=== PATIENT | male | born 1970 | race Caucasian/White ===

== ENCOUNTER → 2021-04-08 00:32 | Outpatient (CLI) | payer OTHER, SELFPAY ==
[2021-04-08 21:00] LABS: SARS-CoV-2 RNA PCR Negative
== END ==
PROVIDERS: PCP Family Medicine; Visit Provider Family Medicine
DX: Z20.828 Contact with and (suspected) exposure to other viral communicable diseases (principal)
CPT/HCPCS: C9803; U0003; U0005

== ENCOUNTER 2024-08-21 00:21 | Day surgery (SDC) | payer OTHER, SELFPAY ==
[2024-08-12 16:08] VITALS: BMI 29.8
[2024-08-21 07:21] VITALS: BP 119/72; PULSE 72; RESP 17; TEMP 36.1; O2SAT 100; BMI 29.7
[2024-08-21] MEDS: LACTATED RINGERS 1,000 ML 150 ML IV CONT (07:29)
--- NOTE | 2024-08-21 07:33 | WPDANESEPPF ---
Anes - Initial Pre Proc Eval Procedure: Operation Date: 08/21/24 08:30 Proposed Procedures p Screening Colonoscopy - Steffen Travis MD Date/Time: 08/21/24 07:33 Surgeon: Steffen Travis MD Pre Op Diagnosis: screening malignant neoplasm colon Patient Data Age: 53 Gender: M Height: 1.83 m Weight: 99.7 kg Last Vital Signs Temp 36.1 C L 08/21/24 07:21 Pulse 72 08/21/24 07:21 Resp 17 08/21/24 07:21 BP 119/72 08/21/24 07:21 Pulse Ox 100 08/21/24 07:21 O2 Del Method Room Air 08/21/24 07:21 Allergies Allergy/AdvReac Type Severity Reaction Status Date / Time No Known Allergies Allergy Verified 08/21/24 07:20 Home Medications ?Medication ?Instructions ?Recorded ?Confirmed ?Type pantoprazole 40 mg tablet,delayed 40 mg PO QAM #90 tabs 07/12/23 08/12/24 Rx release pantoprazole 40 mg tablet,delayed 40 mg PO QAM #90 tabs 03/06/24 08/12/24 Rx release fenofibrate nanocrystallized 145 145 mg PO DAILY #90 tabs 07/24/24 08/12/24 Rx mg tablet Patient hx anesthesia problems: none Family hx anesthesia problems: none Results Review: All pre-operative results and documents have been reviewed as part of the pre-operative evaluation. [facility] Past Medical History Medical History Anxiety Tinea cruris Acid reflux Hyperlipemia Surgical History Surgical History H/O vasectomy [place] teeth removed Hx of tonsillectomy Family History Family History Father Heart disease Social History Social History Smoking status: Never smoker Alcohol intake: current Drinks per week: 5 Substance use: never Do You Feel Safe in your Home?: Yes Lack of Transportation: No Lack of Food: Never True Current Housing: I Have Housing Concerned About Future Housing: No Difficulty Paying Gas/Electric Bills: No Difficulty Paying for Meds: No Difficulty w/ Childcare or Family Care: No Living arrangements: with family Occupation/Education: occupation Gender identity (if verbalized by the patient): Male Sexual Orientation (if Verbalized by the Patient): Straight or Heterosexual Spiritual care concerns: No Anes - Eval Final PreProcedure Day of Procedure 08/21/24 07:33 Patient weight: overweight Heart: regular rate and rhythm Lungs: clear to auscultation Airway: Mallampati scale class II Neurological: alert and oriented Last oral intake: >/= 8 hours ASA classification: II Emergent: no Anesthetic plan: proceed Anesthesia type and monitoring: general GIVS and standard monitoring Results Review: All pre-operative results and documents have been reviewed as part of the pre-operative evaluation. Informed Consent: The patient's anesthetic plan and its attendant risks and benefits were discussed with the patient/family/POA. Questions were solicited and answers provided to the satisfaction of the patient/family/POA.
--- NOTE | 2024-08-21 08:03 | P.HP_ITS ---
History of Present Illness History of Present Illness Consent: Risks, benefits, and alternatives have been discussed and questions answered. Patient agrees to proceed with procedure. Chief complaint: screening malignant neoplasm colon Narrative: Sriram Zapien Jr. is a 53 year old male here for first screening colonoscopy Review of Systems Review of Systems: All systems reviewed & are unremarkable except as noted in HPI and below PMFSH Past Medical History Medical History (Updated 08/21/24 @ 08:04 by Steffen Travis MD) Colon cancer screening Anxiety Tinea cruris Acid reflux Hyperlipemia Surgical History Surgical History H/O vasectomy [place] teeth removed Hx of tonsillectomy Family History Family History Father Heart disease Social History Social History Smoking status: Never smoker Alcohol intake: current Drinks per week: 5 Substance use: never Do You Feel Safe in your Home?: Yes Lack of Transportation: No Lack of Food: Never True Current Housing: I Have Housing Concerned About Future Housing: No Difficulty Paying Gas/Electric Bills: No Difficulty Paying for Meds: No Difficulty w/ Childcare or Family Care: No Living arrangements: with family Occupation/Education: occupation Gender identity (if verbalized by the patient): Male Sexual Orientation (if Verbalized by the Patient): Straight or Heterosexual Spiritual care concerns: No Meds Home Medications and Allergies Home Medications ?Medication ?Instructions ?Recorded ?Confirmed ?Type pantoprazole 40 mg tablet,delayed 40 mg PO QAM #90 tabs 07/12/23 08/12/24 Rx release pantoprazole 40 mg tablet,delayed 40 mg PO QAM #90 tabs 03/06/24 08/12/24 Rx release fenofibrate nanocrystallized 145 145 mg PO DAILY #90 tabs 07/24/24 08/12/24 Rx mg tablet Allergies Allergy/AdvReac Type Severity Reaction Status Date / Time No Known Allergies Allergy Verified 08/21/24 07:20 Vital Signs Vital Signs - 24 hr 08/21/24 07:21 Temperature 96.9 F L Pulse Rate 72 Respiratory Rate 17 Blood Pressure 119/72 Pulse Oximetry 100 Oxygen Delivery Room Air Exam Const: General: comfortable and no acute distress HENMT: Face/Nose/Sinus: Normal nares present Eyes: General: appearance normal, both eyes and all related structures Neck: Neck: no JVD Resp: Auscultation: clear to auscultation bilaterally Cardio: Rate: regular rate Rhythm: regular rhythm GI: Inspection: non-distended GI Palp: Yes Soft to palpation Skin: General skin exam: normal color Neuro: General: gait normal Speech: normal speech Extrem: General: normal to inspection Psych: Mental Status: mental status grossly normal Assessment and Plan Assessment and plan (1) Colon cancer screening: Code(s): Z12.11 - Encounter for screening for malignant neoplasm of colon Status: Acute Assessment and Plan: colonoscopy
[2024-08-21 08:15] VITALS: BP 125/102; PULSE 65; RESP 19; O2SAT 97
[2024-08-21 08:25] VITALS: BP 119/75; PULSE 66; RESP 22; O2SAT 98
[2024-08-21 08:35] VITALS: BP 118/65; PULSE 61; RESP 20; O2SAT 99
--- OUTSIDE RECORDS SUMMARY | 2024-08-27 04:48 | XMS_ITS | Clinical Summary ---
Author Organization [facility] Address [address] [place] [address] Care Team Providers Care Rock Worker Name Role Phone Unavailable Primary Care Provider Unavailabl e Source Comments [facility],non-owned Affiliates and Associated Physician Practices is amultiple site organization consisting of ambulatory clinics and hospital sitesin [place], [place], [place] and [place]. This disclosure is being madepursuant to the Care Everywhere program and may not contain all information available regarding this patient. Last updated 18.[facility] [employer] Social History Tobacco Use Types Packs/Day Years Used Date Smoking Tobacco: Never Assessed Sex and Gender Information Value Date Recorded Sex Assigned at Not on file Gender Identity Not on file Sexual Orientation Not on file Plan of Treatment Health Maintenance Due Date Last Done Comments COLOGUARD (AGES 45-75) - COL ON CA SCREENING 1972 COLON MONITORING 1972 COLONOSCOPY - COLON CA SCREENING 1972 CT COLONOGRAPHY - COLON CA SCREENING 1972 Colorectal Cancer Screening 1972 FIT - COLON CA SCREENING 1972 FLEX SIG - COLON CA SCREENING 1972 LIPID TESTING 1972 HIV SCREENING 1987 HEPATITIS C SCREENING 09/08/1990 DTAP/TDAP/TD VACCINES (1 - Tdap) 1991 HEPATITIS B VACCINE (1 of 3 - 19+ 3-dose series) 1991 PNEUMOCOCCAL VACCINE 50+ (1 of 1 - PCV) 2022 ZOSTER VACCINE (1 of 2) 2022 COVID-19 VACCINE (1 - 2023-2 5 season) 2024 INFLUENZA VACCINE (#1) 2024 DEPRESSION SCREENING 08/05/2024 HIB VACCINE Aged Out No longer eligi ble based on patient's age to complete this topic HPV VACCINE Aged Out No longer eligi ble based on patient's age to complete this topic MENINGOCOCCAL (Group B) VACCINE Aged Out No longer eligible based on patient's age to complete this topic MENINGOCOCCAL VACCINE Aged Out No ramsey atul eligible based on patient's age to complete this topic PNEUMOCOCCAL VACCINE Aged Out No long er eligible based on patient's age to complete this topic
--- OUTSIDE RECORDS SUMMARY | 2024-08-27 04:48 | XMS_ITS | Encounter Summary ---
Author Organization [facility] Address [address] [place] [address] Care Team Providers Care Gold Wheel Blocker And Polisher Name Role Phone Unavailable Primary Care Provider Unavailabl e Encounter Details Date Type Department Care Team (Late st Contact Info) Description 08/01/2020 Lab Requisition [facility] [address] [place] [address] Crystal Hernandez MD [address] [facility] [address] [place] [address] Social History Tobacco Use Types Packs/Day Years Used Date Smoking Tobacco: Never Assessed Sex and Gender Information Value Date Recorded Sex Assigned at Not on file Gender Identity Not on file Sexual Orientation Not on file documented as of this encounter Plan of Treatment Not on file documented as of this encounter Procedures Procedure Name Priority Date/Time Associated Diagnosis Comments DERMATOPATHOLOGY Routine 08/01/2020 3:33 AM COMMERCIAL ENGINEER documented in this encounter Results * DERMATOPATHOLOGY (08/01/2020 3:33 AM COMMERCIAL ENGINEER) Case Report Dermatopathology Report ? Case: [id number] ? Authorizing Provider: ??Crystal Hernandez MD ?Collected: ? 08/01/2020 03:33 AM ? Ordering Location: ? [facility] ?Received: ?08/01/2020 10:35 AM ? Pathologist: ? Luci Renee MD ? Specimen: ?Skin, left waist ? 0 4:45 PM [facility] Final Diagnosis Specimen A. SKIN, left waist: DERMAL SCAR RESIDUAL MELANOCYTIC PROLIFERATION NOT IDENTIFIED (L90.5) 0 4:45 PM [facility] Clinical History R/O junctional melanocytic proliferation bx proven. 0 4:45 PM [facility] Gross Description Specimen A: Received is one formalin filled container labeled with the patient's name and designated left waist.The specimen consists of an ellipse measuring [id number] and is oriented with the notch at the 12 o'clock position not labeled on the requisition. The 12 to 6 o'clock margin is inked green. The 6 o'clock to 12 o'clock margin is inked black. The 12 o'clock tip is submitted in cassette 1. The 6 o'clock tip is submitted in cassette 2. The remainder of the ellipse is serially sectioned and submitted in cassettes 3-4. Jar 0. 0 4:45 PM [facility] Microscopic Description Specimen A. SKIN, left waist: There are fibroblasts and collagen bundles oriented parallel to the skin surface. There are elongated blood vessels, some of which are oriented perpendicular to the skin surface. No residual melanocytic proliferation is identified. 0 4:45 PM [facility] Disclaimer An external and internal positive and negative controls are appropriate for the histochemical, immunohistochemical and immunofluorescence stain(s) in this case (if any), except where stated explicitly. The performance characteristics of the stain(s) cited in this report were developed and its performance characteristic determined by the Dermatopathology Laboratory at [facility], directed by Dr. Domo Renee. These tests need not be, and therefore are not, approved by the [place] Food and Drug Administration. The tests are used for clinical purposes. Billing Codes Specimen Charges Stain Charges 96199 1 0 4:45 PM COMMERCIAL ENGINEER DERMATOPATHOLOGY LABORATORY Embedded Images 0 4:45 PM COMMERCIAL ENGINEER DERMATOPATHOLOGY LABORATORY Pathology/Cytolo gy TISSUE SPECIMEN FROM SKIN / Unknown 08/01/2020 3:33 AM COMMERCIAL ENGINEER 08/01/2020 10:35 AM COMMERCIAL ENGINEER Crystal Hernandez MD LAB - PATHOLOGY/CYTO LOGY ORDERABLES DERMATOPATHOLOGY LABORATORY [facility] - Department of Dermatology [address], [address] [phone] documented in this encounter Visit Diagnoses Not on filedocumented in this encounter
--- OUTSIDE RECORDS SUMMARY | 2024-08-27 04:48 | XMS_ITS | Encounter Summary ---
Author Organization [facility] Address [address] [place] [address] Care Team Providers Care Retail Special Event Associate Name Role Phone Unavailable Primary Care Provider Unavailabl e Encounter Details Date Type Department Care Team (Late st Contact Info) Description 12/25/2023 Lab Requisition [facility] [address] [facility] [address] [facility] [place] [address] Crystal Hernandez MD [address] [facility] [address] DEPT [place] [address] Social History Tobacco Use Types Packs/Day Years Used Date Smoking Tobacco: Never Assessed Sex and Gender Information Value Date Recorded Sex Assigned at Not on file Gender Identity Not on file Sexual Orientation Not on file documented as of this encounter Plan of Treatment Not on file documented as of this encounter Procedures Procedure Name Priority Date/Time Associated Diagnosis Comments DERMATOPATHOLOGY Routine 12/25/2023 3:30 PM CDT documented in this encounter Results * DERMATOPATHOLOGY (12/25/2023 3:30 PM CDT) Case Report Dermatopathology Report ? Case: [id number] ? Authorizing Provider: ??Crystal Hernandez MD ?Collected: ? 12/25/2023 03:30 PM ? Ordering Location: ? [facility] - ??Received: ?12/26/2023 03:45 PM ? DermPath Lab ? Pathologist: ? Luci Renee MD ? Specimen: ?Skin, right post neck ? 4 1:14 PM CDT DERMATOPATHOLOGY LABORATORY Final Diagnosis Specimen A. SKIN, right post neck: BENIGN VERRUCOUS KERATOSIS, INFLAMED (L82.1) 4 1:14 PM T DERMATOPATHOLOGY LABORATORY Clinical History [place] pap, PN vs ingrown hair vs BCC. 4 1:14 PM T DERMATOPATHOLOGY LABORATORY Gross Description Specimen A: Received is one formalin filled container labeled with the patient's name and designated right post neck. The specimen consists of a shave biopsy measuring 8x6x2 mm. Jar 0. 4 1:14 PM T DERMATOPATHOLOGY LABORATORY Microscopic Description Specimen A. SKIN, right post neck: Sections show hyperkeratosis, papillomatosis, hypergranulosis, and acanthosis. Inflammatory cells are present within the dermis. These histological findings can be seen in a verruca vulgaris or a seborrheic keratosis. 4 1:14 PM T DERMATOPATHOLOGY LABORATORY Disclaimer An external and internal positive and negative controls are appropriate for the histochemical, immunohistochemical and immunofluorescence stain(s) in this case (if any), except where stated explicitly. The performance characteristics of the stain(s) cited in this report were developed and its performance characteristic determined by the Dermatopathology Laboratory at [facility], directed by Dr. Domo Renee. These tests need not be, and therefore are not, approved by the [place] Food and Drug Administration. The tests are used for clinical purposes. Billing Codes Specimen Charges Stain Charges 70858 1 4 1:14 PM CDT DERMATOPATHOLOGY LABORATORY Embedded Images 4 1:14 PM CDT DERMATOPATHOLOGY LABORATORY Pathology/Cytolo gy TISSUE SPECIMEN FROM SKIN / Unknown 12/25/2023 3:30 PM CDT 12/26/2023 3:45 PM CDT Crystal Hernandez MD LAB - PATHOLOGY/CYTO LOGY ORDERABLES DERMATOPATHOLOGY LABORATORY [facility] - Department of Dermatology [address] [phone] documented in this encounter Visit Diagnoses Not on filedocumented in this encounter
--- OUTSIDE RECORDS SUMMARY | 2024-08-27 04:48 | XMS_ITS | Encounter Summary ---
Author Organization [facility] Address [address] [facility] [address] [place] [address] Care Team Providers Care Paraprofessional Aide Name Role Phone Unavailable Primary Care Provider Unavailabl e Encounter Details Date Type Department Care Team (Late st Contact Info) Description 07/13/2020 Lab Requisition [facility] [address] [facility] [place] [facility] [place] [address] Jessica Null MD [address] [facility] [address] [place] [address] Social History Tobacco Use Types Packs/Day Years Used Date Smoking Tobacco: Never Assessed Sex and Gender Information Value Date Recorded Sex Assigned at Not on file Gender Identity Not on file Sexual Orientation Not on file documented as of this encounter Plan of Treatment Not on file documented as of this encounter Procedures Procedure Name Priority Date/Time Associated Diagnosis Comments DERMATOPATHOLOGY Routine 07/12/2020 12:0 0 AM SIPHONER documented in this encounter Results * DERMATOPATHOLOGY (07/12/2020 12:00 AM SIPHONER) Case Report Dermatopathology Report ? Case: [id number] ? Authorizing Provider: ??Jessica Null MD ? Collected: ? 07/12/2020 12:00 AM ? Ordering Location: ? [facility] ?Received: ?07/13/2020 12:39 PM ? Pathologist: ? Luci Renee MD ? Specimens: ?? A) - Skin, left thigh ? B) - Skin, left waist ? 0 4:15 PM [facility] DERMATOPATHOLOGY LABORATORY Final Diagnosis Specimen A. SKIN, left thigh: INTRADERMAL MELANOCYTIC NEVUS WITH CONGENITAL FEATURES (D22.9) Specimen B. SKIN, left waist: JUNCTIONAL MELANOCYTIC PROLIFERATION; NOT PRESENT AT SAMPLED MARGIN (D48.5) (see microscopic description and comment) 0 4:15 PM [facility] DERMATOPATHOLOGY LABORATORY Clinical History A: Nevus R/O atypia, irritated. B: Nevus R/O atypia, irregular border, irregular color. 0 4:15 PM [facility] DERMATOPATHOLOGY LABORATORY Gross Description Specimen A: Received is one formalin filled container labeled with the patient's name and designated left thigh. The specimen consists of a shave measuring 8p6x7gd. Jar 0. Specimen B: Received is one formalin filled container labeled with the patient's name and designated left waist. The specimen consists of a shave measuring [id number]. Jar 0. 0 4:15 PM [facility] DERMATOPATHOLOGY LABORATORY Microscopic Description Specimen A. SKIN, left thigh: There are nests of cytologically bland melanocytes within the dermis. Some of these melanocytes are concentrated around blood vessels and adnexal structures. Specimen B. SKIN, left waist: Sections show a junctional melanocytic proliferation. There is a lentiginous proliferation of melanocytes between irregular nests. Scattered melanocytes show evidence of upward migration within the epidermis. The melanocytes are large and have a pedro cytoplasm. The melanocytes are highlighted by MART-1/Melan-A.This lesion is not present at the sampled margin of the specimen. COMMENT: The degree of pagetoid spread is concerning; however, this is present in areas of irritation. As this lesion appears completely excised in the sampled sections, clinicopathologic correlation is recommended as to complete removal. 0 4:15 PM [facility] DERMATOPATHOLOGY LABORATORY Disclaimer An external and internal positive and negative controls are appropriate for the histochemical, immunohistochemical and immunofluorescence stain(s) in this case (if any), except where stated explicitly. The performance characteristics of the stain(s) cited in this report were developed and its performance characteristic determined by the Dermatopathology Laboratory at [facility], directed by Dr. Domo Renee. These tests need not be, and therefore are not, approved by the [place] Food and Drug Administration. The tests are used for clinical purposes. Billing Codes Specimen Charges Stain Charges 93825 45911 1 1 51636 1 0 4:15 PM [facility] DERMATOPATHOLOGY LABORATORY Embedded Images 0 4:15 PM [facility] DERMATOP[facility] LABORATORY Pathology/Cytology TISSUE SPECIMEN FROM SKIN / Unknown 07/12/2020 07/13/2020 12:39 PM SIPHONER Miscellaneous samples (specimen) TISSUE SPECIMEN FROM SKIN / Unknown 07/12/2020 07/13/2020 12:39 PM SIPHONER Jessica Null MD LAB - PATHOLOGY/CYT OLOGY ORDERABLES DERMATOPATHOLOGY LABORATORY [facility] - Department of Dermatology [address] [place] [address], [facility] [[email or web address]] [phone] documented in this encounter Visit Diagnoses Not on filedocumented in this encounter
--- OUTSIDE RECORDS SUMMARY | 2024-08-27 04:48 | XMS_ITS | Referral Summary ---
Author Organization [facility] Address [address] [facility] [address] [place] [address] Care Team Providers Care Primary Special Education Teacher Name Role Phone Unavailable Primary Care Provider Unavailabl e Source Comments [facility],non-owned Affiliates and Associated Physician Practices is amultiple site organization consisting of ambulatory clinics and hospital sitesin [place], [place], [place] and [place]. This disclosure is being madepursuant to the Care Everywhere program and may not contain all information available regarding this patient. Last updated 18.[facility] Social History Tobacco Use Types Packs/Day Years Used Date Smoking Tobacco: Never Assessed Sex and Gender Information Value Date Recorded Sex Assigned at Not on file Gender Identity Not on file Sexual Orientation Not on file Plan of Treatment Not on file
--- OUTSIDE RECORDS SUMMARY | 2024-08-27 04:48 | XMS_ITS | Patient Health Summary ---
Author Organization [facility] Address [address] [place] [address] Care Team Providers Care Generation Manager Name Role Phone Unavailable Primary Care Provider Unavailabl e Note from [facility],non-owned Affiliates and Associated Physician Practices is amultiple site organization consisting of ambulatory clinics and hospital sitesin [place], [place], [place] and [place]. This disclosure is being madepursuant to the Care Everywhere program and may not contain all information available regarding this patient. Last updated 18.[facility] Social History Tobacco Use Types Packs/Day Years Used Date Smoking Tobacco: Never Assessed Sex and Gender Information Value Date Recorded Sex Assigned at Not on file Gender Identity Not on file Sexual Orientation Not on file Procedures * DERMATOPATHOLOGY(Performed 12/25/2023) * DERMATOPATHOLOGY(Performed 08/01/2020) * DERMATOPATHOLOGY(Performed 07/12/2020) * DERMATOPATHOLOGY(Performed 10/24/2017) Results * DERMATOPATHOLOGY (12/25/2023 3:30 PM CDT) Only the most recent of4 resultswithin the time period is included. Case Report Dermatopathology Report ? Case: [id number] ? Authorizing Provider: ??Crystal Hernandez MD ?Collected: ? 12/25/2023 03:30 PM ? Ordering Location: ? [facility] - ??Received: ?12/26/2023 03:45 PM ? DermPath Lab ? Pathologist: ? Luci Renee MD ? Specimen: ?Skin, right post neck ? 4 1:14 PM CDT DERMATOPATHOLOGY LABORATORY Final Diagnosis Specimen A. SKIN, right post neck: BENIGN VERRUCOUS KERATOSIS, INFLAMED (L82.1) 4 1:14 PM CDT DERMATOPATHOLOGY LABORATORY Clinical History Pantops pap, PN vs ingrown hair vs BCC. 4 1:14 PM CDT DERMATOPATHOLOGY LABORATORY Gross Description Specimen A: Received is one formalin filled container labeled with the patient's name and designated right post neck. The specimen consists of a shave biopsy measuring 8x6x2 mm. Jar 0. 4 1:14 PM CDT DERMATOPATHOLOGY LABORATORY Microscopic Description Specimen A. SKIN, right post neck: Sections show hyperkeratosis, papillomatosis, hypergranulosis, and acanthosis. Inflammatory cells are present within the dermis. These histological findings can be seen in a verruca vulgaris or a seborrheic keratosis. 4 1:14 PM CDT DERMATOPATHOLOGY LABORATORY Disclaimer An external and internal positive and negative controls are appropriate for the histochemical, immunohistochemical and immunofluorescence stain(s) in this case (if any), except where stated explicitly. The performance characteristics of the stain(s) cited in this report were developed and its performance characteristic determined by the Dermatopathology Laboratory at [facility], directed by Dr. Domo Renee. These tests need not be, and therefore are not, approved by the [place] Food and Drug Administration. The tests are used for clinical purposes. Billing Codes Specimen Charges Stain Charges 82826 1 4 1:14 PM CDT DERMATOPATHOLOGY LABORATORY Embedded Images 4 1:14 PM CDT DERMATOPATHOLOGY LABORATORY Pathology/Cytolo gy TISSUE SPECIMEN FROM SKIN / Unknown 12/25/2023 3:30 PM CDT 12/26/2023 3:45 PM CDT Crystal Hernandez MD LAB - PATHOLOGY/CYTO LOGY ORDERABLES DERMATOPATHOLOGY LABORATORY [facility] - Department of Dermatology [address], [address] [phone]
--- OUTSIDE RECORDS SUMMARY | 2024-08-27 04:48 | XMS_ITS | Continuity of Care Document ---
Author Organization [facility] Address [id number] [place] [address] [place] [address] Phone Care Team Providers Care Area Field Person Name Role Phone Carlton Fajardo DO Unavailable Unavailable Advance Directives Directive Yes / No Effective Date File Name No Information Encounters Encounter Description Practice Location Reason(s) For Visit Diagnoses Date Provider Providers Copied on Encounter [facility], [address], [place], [place], [id number], [place] tel:[phone] [facility] No Information Scotty Coulter. [address] [place], [address], [place]. tel: [phone] Family History Family Member Type Diagnosis Age At Onset No Information Payers Payer name Insurance type Covered republican ID Authoriza tion(s) No Information Social History Type Description Quantity Date Captured Comments Sex Male Smoking Status No Information Chief Complaint And Reason For Visit No Information Reason For Referral Reason For Referral No Information History Of Present Illness Encounter Date Complaint History Of Prese nt Illness No Information Functional Status Date Functional Assessmen t No Information Instructions Date Instruction Additional Infor mation No Information Assessments Type Assessment Date No Information Patient Care Teams Name Effective Dates (start - stop) Status Members No Information
== END 2024-08-21 08:44 | disposition home or self-care (01) ==
PROVIDERS: PCP Family Medicine; Referring Provider Family Medicine; Visit Provider Internal Medicine Gastroenterology
PROC: 0DJD8ZZ Inspection of Lower Intestinal Tract, Via Natural or Artificial Opening Endoscopic (ICD-10-PCS; CPT 45378; principal; 2024-08-21 08:30)
DX: Z12.11 Encounter for screening for malignant neoplasm of colon (principal); K64.8 Other hemorrhoids; K62.89 Other specified diseases of anus and rectum; E78.5 Hyperlipidemia, unspecified; F41.9 Anxiety disorder, unspecified; K21.9 Gastro-esophageal reflux disease without esophagitis; Z98.890 Other specified postprocedural states; Z82.49 Family history of ischemic heart disease and other diseases of the circulatory system
CPT/HCPCS: 45378; J2704; J7120